=== PATIENT | male | born 1955 | race African-American/Black ===

== ENCOUNTER 2016-02-26 15:01 | Emergency (ER) | payer OTHER ==
[2016-02-26 15:36] LABS: MANUAL DIFF NEEDED? NO
[2016-02-26 15:42] LABS: BASO% 0.5 % (0.0-0.8); EOS# 0.07 X1000 (0.0-0.7); EOS% 1.1 % (0.0-10.0); HEMATOCRIT 37.4 % (42.0-52.0); HEMOGLOBIN 11.8 g/dL (14.0-18.0); LYMPH# 1.28 X1000 (1.2-3.4); LYMPH% 20.2 % (20.5-51.1); MCH 26.9 PG (27-31); MCHC 31.6 g/dL (33-37); MCV 85.2 FL (81-99); MONO# 0.56 X1000 (0.11-0.59); MONO% 8.8 % (1.7-9.3); MPV 9.8 FL (7.4-10.4); NEUT% 69.4 % (42.2-75.2); PLT 274 X1000 (130-400); RBC 4.39 XMIL (4.7-6.1)
[2016-02-26 16:16] LABS: AGAP 12; ALBUMIN 3.8 g/dL (3.5-5.0); ALKALINE PHOSPHATASE 80 U/L (32-122); BUN 13 mg/dL (8-22); CALCIUM 8.6 mg/dL (8.8-10.2); CHLORIDE 104 mmol/L (98-107); COSMO 277; GOT 17 U/L (10-34); GPT 12 U/L (10-44); POTASSIUM 3.5 mmol/L (3.5-5.1); SODIUM 140 mmol/L (136-145); TCO2 24 mmol/L (25-35); TOTAL BILIRUBIN 0.28 mg/dL (0.20-1.00); TOTAL PROTEIN 6.2 g/dL (6.3-8.3)
[2016-02-26] MEDS ORDERED: NS 1,000 ML IV ONE (16:16)
[2016-02-26] MEDS ORDERED: SODIUM CHLORIDE 0.9% INJ ONE (16:16)
[2016-02-26] MEDS ORDERED: PROTONIX IV ONE (16:16)
[2016-02-26 17:25] LABS: PROTIME 10.6 Seconds (9.2-11.7); PTT 23.4 Seconds (22.0-36.0)
[2016-02-26 17:29] LABS: AMYLASE 83 U/L (20-200); LIPASE 16 U/L (13-60)
[2016-02-26] MEDS ORDERED: D50W SYRINGE IV ONE (19:15)
--- NOTE | 2016-02-26 19:16 | PROVIDER DOCUMENTATION ---
HPI-Abdominal Pain/GI Problem - General Chief Complaint: GI Bleed Stated Complaint: PASSING BLOOD Time Seen by Provider: 02/26/16 16:23 Source: patient (Patient is a 60 year old black male with history of gastric ulcers who presents with intermittent bright red blood per rectum for past 2 days. Denies abdominal pain, vomiting. Last ate at 11am- pancakes,eggs, sausage. Followed by Dr. Fajardo.) Allergies/Adverse Reactions: Patient Allergies Allergy/AdvReac Type Severity Reaction Status Date / Time No Known Allergies Allergy Verified 02/26/16 16:52 Home Medications: Gabapentin 300 mg PO TID 02/04/14 - History of Present Illness-ABD Quality of Pain: reports: none Onset/Duration: reports: gradual Timing: reports: intermittent Activities at Onset: reports: none Exposure to sick contacts?: No Modifying Factors: improves with: nothing Associated Symptoms: reports: nausea. denies: constipation, diarrhea, dizziness , fever/chills, genitourinary problems, vomiting Last BM: 2 days ago Rectal Bleeding: reports: bright red blood on paper Rectal Pain: reports: none Emesis Description: reports: none Bruising or Bleeding Gums?: No Similar Symptoms Previously?: No Recently seen or treated by another doctor?: No Review of Systems - Adult - REVIEW OF SYSTEMS - ADULT Constitutional: reports: no symptoms reported. denies: chills, fever Eyes: reports: no symptoms reported Ears, Nose, Mouth & Throat: reports: no symptoms reported Cardiovascular: denies: chest pain Respiratory: denies: shortness of breath Gastrointestinal: reports: nausea, rectal bleeding. denies: abdominal pain, vomiting Genitourinary: reports: no symptoms reported Musculoskeletal: reports: no symptoms reported Integumentary: reports: no symptoms reported Neurological: reports: no symptoms reported Psychiatric: reports: no symptoms reported Endocrine: reports: no symptoms reported Hematologic/Lymphatic: reports: no symptoms reported Allergic/Immunologic: reports: no symptoms reported All Other Systems: Reviewed and Negative Past History - Adult - PAST MEDICAL HISTORY-ADULT Review of Records: reports: Old Records Reviewed, Nursing Assessment Review, Medications Reviewed, Social history reviewed & non-contributory. Major Childhood Illnesses: reports: denies history Cardiovascular: reports: denies history Respiratory: reports: denies history Gastrointestinal: reports: denies history Obstetrical/Gynecological: reports: denies history Genitourinary: reports: denies history Musculoskeletal: reports: denies history Neurological: reports: denies history Endocrine/Immune: reports: denies history Other Conditions: reports: denies history - PRIOR SURGERIES/PROCEDURES Surgical/Procedure History: reports: other (ulcer ) Physical Exam-General - CONSTITUTIONAL General Appearance: appears well, alert, no apparent distress - EYES Eyes: other (clear) - HEAD, EARS, NOSE, MOUTH & THROAT HENMT: moist mucous membranes, normal ENT inspection - NECK Neck: supple - RESPIRATORY Respiratory: lungs clear - CARDIOVASCULAR Cardiovascular: regular rate, rhythm - GASTROINTESTINAL (ABDOMEN) Abdominal Exam: non tender, soft. negative: guarding, rebound - GENITOURINARY Male Genitalia: deferred Rectal Exam: other (no active bleeding, external hemorroids, dried blood) - MUSCULOSKELETAL Back Exam: normal inspection, no CVA tenderness Extremity: normal range of motion, non-tender - SKIN Integumentary: normal color, normal turgor - NEUROLOGIC Neurologic: grossly normal - PSYCHIATRIC Psych/Mental Status: anxious Departure - Departure Time of Disposition Order: 08:00 DIAGNOSIS: Lower gastrointestinal bleeding Disposition: HOME 01 Certified Medical Emergency: Emergent Condition: Stable Additional Instructions: contact GI doctor on Sunday for further evaluation, avoid constipation, return to ER if symptoms worsen Prescriptions: Famotidine [Pepcid] 20 mg PO BID #60 tablet Promethazine [Phenergan] 1 tab PO Q6H PRN PRN #12 tablet PRN Reason: Vomiting Referrals: None,PCP [Primary Care Provider] - Lizbeth Macedo MD [STAFF PHYSICIAN] - Instructions: Gastrointestinal Bleeding, Gastrointestinal Bleeding, Easy-to- Read
[2016-02-26 19:38] VITALS: BP 140/84
== END 2016-02-26 19:49 | disposition home or self-care (01) ==
LOC: ED 15:01
DX: K92.2 Gastrointestinal hemorrhage, unspecified (principal); K64.4 Residual hemorrhoidal skin tags; R11.0 Nausea; Z79.899 Other long term (current) drug therapy
CPT/HCPCS: 80053; 82150; 82948; 83690; 85025; 85610; 85730; 96374; 96375; C9113; J7030; S0164